=== PATIENT | female | born 1975 | race Caucasian/White ===

== ENCOUNTER → 2019-06-19 | Outpatient (CLI) | payer OTHER ==
--- NOTE | 2019-06-21 15:07 | PATH ---
[facility] [place], [place] [address] [place] [address] PATHOLOGY RPT PROCEDURE Name: ANKUR AMANDA Room #: MARIZA KRISTINA Littlejohn.#: [id number] Admission: 06/19/19 Date of : 71 Discharge: Report #: [id number] Path Case #: [id number] [facility] Accession Number: [id number] . 01 Material submitted: . breast - RIGHT BREAST. Modifiers: right . 01 Clinical history: . Right microcalcifications . 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 - Proliferative fibrocystic changes associated with markedly dilated ducts, stromal fibrosis, focal columnar cell change, adenosis, fibroadenomatoid changes and extensive apocrine metaplasia in addition to elastosis. - Columnar cell changes and apocrine metaplasia associated with coarse calcifications. - Negative for malignancy. LBQ 06/21/2019 1039 Local . 02 Comment: Multiple properly controlled immunohistochemical stains are performed on block A4. Intact myoepithelial layer is identified on immunohistochemical stain [facility]. P63 shows focal loss of myoepithelial cells in a focus where intact layer is identified with [facility] therefore this may be a nonspecific finding. CK5/6 shows loss of mosaic pattern. This may be due to the elastosis, columnar cell change and apocrine metaplasia identified in association with the elastotic focus. ER shows focal increased nuclear expression. The findings are compatible with atypia. Overall, the sampled lesion may be a radial scar. Please note sample may not be entirely corporate representative. Correlate clinically and follow-up as indicated. . Dr. Pearl Drew has seen corporate representative slides of this case and concurs with my diagnosis. (IUV/db; 06/20/2019) . 02 Electronically signed: . Doris Membreno MD, Pathologist NPI- [id number] . 01 Gross description: . Received in formalin labeled "Ankur Amanda, right breast," and additionally labeled on the requisition as "SA," are multiple needle cores of yellow-rosenbaum fibrofatty tissue measuring 3.4 x 5.9 x 0.6 cm in aggregate dimensions. The tissue is submitted in its entirety in cassettes A1-A4. [address] [address] PATHOLOGY RPT PROCEDURE Name: ANKUR AMANDA Room #: REG KRISTINA Jones#: [id number] Admission: 06/19/19 Date of : 71 Discharge: Report #: [id number] Path Case #: [id number] The cold ischemic time is less than 1 minute. The total formalin fixation time is 12 hours and 40 minutes. (TSD; 06/19/2019) TOB/TOB 06/19/2019 2210 Local . 02 Pathologist provided ICD-10: N60.11, N60.31, N60.21, N60.81 . 02 CPT . 150611, [id number], [id number] Specimen Comment: A courtesy copy of this report has been sent to [phone], [phone] Specimen Comment: [phone] Specimen Comment: Report sent to and Performed at: [address], [place] [id number] MD Claus Ruiz MD Phone: [phone] Performed at: [address] [id number] MD Doris Membreno MD Phone: [phone]
== END | disposition home or self-care (01) ==
LOC: ULTRA 09:00
DX: R92.1 Mammographic calcification found on diagnostic imaging of breast (principal); N60.31 Fibrosclerosis of right breast; N60.21 Fibroadenosis of right breast; N60.81 Other benign mammary dysplasias of right breast